=== PATIENT | male | born 2000 | race Caucasian/White ===

== ENCOUNTER 2022-11-18 16:21 | Emergency (ER) | payer OTHER ==
[2022-11-18 16:37] LABS: BILIRUBIN,URINE NEGATIVE (NEGATIVE); GLUCOSE, URINE (UA) NEGATIVE (NEGATIVE); KETONES,URINE (UA) NEGATIVE (NEGATIVE); LEUKOCYTE ESTERASE, URINE NEGATIVE (NEGATIVE); NITRITE,URINE NEGATIVE (NEGATIVE); OCCULT BLOOD,URINE NEGATIVE (NEGATIVE); PROTEIN,URINE NEGATIVE (NEGATIVE); UROBILINOGEN,URINE 0.2 (NORMAL) E.U./dL (NORMAL)
[2022-11-18 16:38] LABS: CLARITY,URINE CLEAR (CLEAR)
--- NOTE | 2022-11-18 16:46 | ED Physician Documentation ---
PD HPI ABD PAIN - Stated complaint Stated Complaint: ABD PX - Chief complaint Chief Complaint: Abd Pain - History obtained from History obtained from: Patient - Additional information Additional information: 22-year-old gentleman has developed right flank and abdominal pain for last 2 weeks. It initially was more in the groin, now more in the right lower lateral abdomen. It is associated with softer than normal stools. Denies fevers or nausea. Was seen at an urgent care in [place] and had urinalysis done without pertinent positive findings. No other work-up. Review of Systems Constitutional: denies: Fever, Chills GI: reports: Abdominal Pain. denies: Nausea, Vomiting, Constipation, Diarrhea, Hematemesis, Bloody / black stool PD PAST MEDICAL HISTORY - Present Medications Home Medications: Ambulatory Orders Medication Instructions Recorded Confirmed No Known Home Medications 11/18/22 11/18/22 - Allergies Allergies/Adverse Reactions: Allergies Allergy/AdvReac Type Severity Reaction Status Date / Time azithromycin Allergy Hives Verified 11/18/22 16:25 PD ED PE NORMAL - Vitals Vital signs reviewed: Yes - General General: Alert and oriented X 3, No acute distress - Neck Neck: Supple, no meningeal sign, No bony TTP - Cardiac Cardiac: RRR, No murmur - Respiratory Respiratory: No respiratory distress, Clear bilaterally - Abdomen Abdomen: Normal bowel sounds, Soft, Other (Minimal right lower quadrant tenderness well lateral to McBurney's point) - Back Back: No CVA TTP, No spinal TTP - Derm Derm: Normal color, Warm and dry - Extremities Extremities: No edema, No calf tenderness / cord - Neuro Neuro: Alert and oriented X 3, Normal speech Results - Vitals Vitals: Vital Signs - 24 hr 11/18/22 11/18/22 11/18/22 16:25 16:31 16:56 Temperature 36.5 C Heart Rate 90 84 Respiratory 16 16 17 Rate Blood Pressure 160/90 H O2 Saturation 98 100 11/18/22 11/18/22 17:43 18:02 Temperature 36.7 C Heart Rate 84 Respiratory 15 16 Rate Blood Pressure 139/82 H O2 Saturation 100 Oxygen O2 Source Room air - Labs Labs: Laboratory Tests 11/18/22 11/18/22 11/18/22 16:30 16:40 16:40 WBC 6.6 RBC 5.37 Hgb 15.6 Hct 47.6 MCV 88.6 MCH 29.1 MCHC 32.8 RDW 11.3 L Plt Count 307 MPV 8.6 Neut # (Auto) 3.5 Lymph # (Auto) 2.5 [place] # (Auto) 0.5 Eos # (Auto) 0.0 Baso # (Auto) 0.1 Absolute Nucleated RBC 0.00 Nucleated RBC % 0.0 Sodium 140 Potassium 3.8 Chloride 104 Carbon Dioxide 26 Anion Gap 10.0 BUN 9 Creatinine 0.8 Estimated GFR (MDRD) 121 Glucose 96 Calcium 10.3 Total Bilirubin 1.0 AST 22 ALT 20 Alkaline Phosphatase 54 Total Protein 7.9 Albumin 4.6 Globulin 3.3 Albumin/Globulin Ratio 1.4 Lipase 28 Urine Color YELLOW Urine Clarity CLEAR Urine pH 7.0 Ur Specific [place] 1.010 Urine Protein NEGATIVE Urine Glucose (UA) NEGATIVE Urine Ketones NEGATIVE Urine Occult Blood NEGATIVE Urine Nitrite NEGATIVE Urine Bilirubin NEGATIVE Urine Urobilinogen 0.2 (NORMAL) Ur Leukocyte Esterase NEGATIVE Ur Microscopic Review NOT INDICATED Urine Culture Comments NOT INDICATED - Rads (name of study) CT abdomen pelvis with IV contrast is normal. Radiology: Final report received, EMP read indepedently PD Medical Decision Making - ED course Complexity details: reviewed results (CBC normal, CMP normal, urinalysis normal.) ED course: 22-year-old gentleman with right lower quadrant pain of 2 weeks duration. He appears well with minimal if any tenderness on exam. Diagnostic work-up was negative. Close return precautions given. Departure - Departure Disposition: 01 Home, Self Care Clinical Impression: Abdominal pain Condition: Good Record reviewed to determine appropriate education?: Yes Instructions: ED Abdominal Pain Unkn Cause Male Comments: CT scan and labs were negative/normal. No evidence of appendicitis, kidney stone, diverticulitis. Follow-up with your doctor for further evaluation. Return if you worsen. Discharge Date/Time: 11/18/22 18:03
[2022-11-18 16:47] LABS: BASOPHILS # (AUTO) 0.1 10^3/uL (0.0-0.1); BASOPHILS % (AUTO) 0.9 %; EOSINOPHILS % (AUTO) 0.3 %; HCT - HEMATOCRIT 47.6 % (42.0-52.0); HGB - HEMOGLOBIN 15.6 g/dL (14.0-18.0); LYMPHOCYTES # (AUTO) 2.5 10^3/uL (1.5-3.5); LYMPHOCYTES % (AUTO) 37.7 %; MEAN CORPUSCULAR HEMOGLOBIN 29.1 pg (27.0-31.0); MEAN CORPUSCULAR HGB CONC 32.8 g/dL (32.0-36.0); MEAN CORPUSCULAR VOLUME 88.6 fL (80.0-94.0); MEAN PLATELET VOLUME 8.6 fL (7.4-11.4); MONOCYTES # (AUTO) 0.5 10^3/uL (0.0-1.0); MONOCYTES % (AUTO) 7.9 %; NEUTROPHILS # (AUTO) 3.5 10^3/uL (1.5-6.6); PLT - PLATELET COUNT 307 10^3/uL (130-450); RED BLOOD COUNT 5.37 10^6/uL (4.70-6.10); RED CELL DISTRIBUTION WIDTH 11.3 % (12.0-15.0); WHITE BLOOD COUNT 6.6 x10^3/uL (4.8-10.8)
[2022-11-18 17:03] LABS: ALBUMIN 4.6 g/dL (3.2-5.5); ALBUMIN/GLOBULIN RATIO 1.4 (1.0-2.2); CALCIUM 10.3 mg/dL (8.5-10.3); CREATININE 0.8 mg/dL (0.6-1.2); POTASSIUM 3.8 mmol/L (3.5-5.0); TOTAL PROTEIN 7.9 g/dL (6.7-8.2)
[2022-11-18] MEDS ORDERED: iohexoL-300 100 ML VIAL ONE (17:15)
[2022-11-18 17:45] VITALS: BP 139/82
--- NOTE | 2022-11-18 17:49 | CT Report ---
PROCEDURE: ABDOMEN/PELVIS W INDICATIONS: IV only, RLQ pain CONTRAST: 100mL Omni 300 TECHNIQUE: After the administration of intravenous contrast, 5 mm thick sections acquired from the diaphragms to the symphysis. 5 mm thick coronal and sagittal reformats were acquired. For radiation dose reducti on, the following was used: automated exposure control, adjustment of mA and/or kV according to debbie ent size. COMPARISON: None. FINDINGS: Visualized lung bases: No pleural effusion. Liver and biliary tree: No suspect focal hepatic lesion. No biliary ductal dilation. Gallbladder: No radiopaque cholelithiasis. Spleen: Unremarkable. Pancreas: Unremarkable. Adrenal glands: Unremarkable. Kidneys and ureters: No hydronephrosis. Gastrointestinal tract: No bowel obstruction. The appendix is visualized without evidence of acute ap pendicitis. Peritoneal cavity: No free air or free fluid. Bladder: Unremarkable. Pelvic organs: Unremarkable CT appearance. Vasculature: No abdominal aortic aneurysm. Musculoskeletal: No acute osseous abnormality identified. IMPRESSION: No evidence of acute appendicitis or other acute abnormality identified within the abdom en or pelvis. Reviewed by: Wlil Mendoza MD on 11/18/2022 5:48 PM PST Approved by: Will Mendoza MD on 11/18/2022 5:48 PM PST Station ID: [id number]
[2022-11-18] MEDS ORDERED: iohexoL-300 100 ML VIAL IVP ONE (19:28)
== END 2022-11-18 18:03 | disposition home or self-care (01) ==
LOC: ED 16:21
DX: R10.31 Right lower quadrant pain (principal)
CPT/HCPCS: 36415; 74177; 80053; 81003; 83690; 85025; 99283; 99284; Q9967; 81001; 87086

== ENCOUNTER 2023-02-24 17:41 | Emergency (ER) | payer OTHER ==
[2023-02-24 17:49] VITALS: BP 140/80
[2023-02-24] MEDS ORDERED: SODIUM CHLORIDE 0.9% 1,000 ML IV STA (17:52)
[2023-02-24] MEDS ORDERED: ONDANSETRON 4 MG/2 ML VIAL IVP STA (17:52)
--- NOTE | 2023-02-24 18:00 | ED Physician Documentation ---
History of Present Illness - Stated complaint Stated Complaint: ABNORMAL HR/DEHYDRATED SENT BY PCP - Chief complaint Chief Complaint: General - Additonal information Additional information: 22-year-old male was advised to come to the ER for IV hydration by [facility] for concerns of dehydration. Patient reports that about 5 days ago he began having vomiting and diarrhea. He continues to have 5-7 watery bowel movements a day. Nonbloody. He has not vomited for 3 days. He is taking water and Pedialyte. He has been feeling generally achy and feverish. He is denying any abdominal pain. No history of similar. He has tried Pepto-Bismol without relief of the diarrhea. He is on well water. Denies similar in neighbors or family at home. No recent travel Review of Systems Constitutional: reports: Myalgias, Fatigue. denies: Fever Ears: reports: Reviewed and negative Throat: reports: Reviewed and negative Cardiac: reports: Reviewed and negative Respiratory: reports: Reviewed and negative GI: reports: Vomiting, Diarrhea. denies: Abdominal Pain, Hematemesis, Bloody / black stool : reports: Reviewed and negative Skin: reports: Reviewed and negative Musculoskeletal: reports: Reviewed and negative PD PAST MEDICAL HISTORY - Past Medical History Cardiovascular: None Respiratory: None Neuro: None Endocrine/Autoimmune: None GI: None : None HEENT: None Psych: None Musculoskeletal: Other Derm: None - Past Surgical History Past Surgical History: Yes Ortho: ACL reconstruction - Present Medications Home Medications: Ambulatory Orders Medication Instructions Recorded Confirmed No Known Home Medications 11/18/22 11/18/22 - Allergies Allergies/Adverse Reactions: Allergies Allergy/AdvReac Type Severity Reaction Status Date / Time azithromycin Allergy Hives Verified 02/24/23 17:45 - Social History Does the pt smoke?: Yes Smoking Status: Current every day smoker Does the pt drink ETOH?: Yes Does the pt have substance abuse?: No - Immunizations Immunizations are current?: Yes - POLST Patient has POLST: No PD ED PE NORMAL - General General: Alert and oriented X 3, No acute distress, Well developed/nourished - HEENT HEENT: Atraumatic, Moist mucous membranes - Neck Neck: Supple, no meningeal sign, No adenopathy - Cardiac Cardiac: RRR, No murmur - Respiratory Respiratory: No respiratory distress, Clear bilaterally - Abdomen Abdomen: Soft, Non tender, Non distended. No: Normal bowel sounds (Hyperactive) Results - Vitals Vitals: Vital Signs - 24 hr 02/24/23 17:45 Temperature 36.5 C Heart Rate 94 Respiratory 16 Rate Blood Pressure 140/80 H O2 Saturation 100 Oxygen O2 Source Room air - Labs Labs: Laboratory Tests 02/24/23 02/24/23 17:57 17:57 WBC 7.4 RBC 5.32 Hgb 15.7 Hct 46.4 MCV 87.2 MCH 29.5 MCHC 33.8 RDW 11.2 L Plt Count 249 MPV 8.5 Neut # (Auto) 4.3 Lymph # (Auto) 1.9 [place] # (Auto) 1.0 Eos # (Auto) 0.0 Baso # (Auto) 0.1 Absolute Nucleated RBC 0.00 Nucleated RBC % 0.0 Sodium 137 Potassium 4.0 Chloride 102 Carbon Dioxide 27 Anion Gap 8.0 BUN 11 Creatinine 0.9 Estimated GFR (MDRD) 106 Glucose 91 Calcium 9.3 Total Bilirubin 1.0 AST 19 ALT 21 Alkaline Phosphatase 55 Total Protein 8.6 H Albumin 4.7 Globulin 3.9 Albumin/Globulin Ratio 1.2 Lipase 26 PD Medical Decision Making - ED course Complexity details: reviewed results, re-evaluated patient, d/w patient ED course: Well-appearing 20-year-old male presents emergency department for evaluation of 5 days of vomiting and diarrhea. [place] a resting tachycardia with a rate of about 110 that could be a sign of severe dehydration and was advised to come to the ER for hydration. On presentation to the emergency department the patient has a resting heart rate in the 90s. I did obtain CBC and electrolytes and per my interpretation no acute worrisome findings to suggest severe dehydration, electrolyte derangement or altered kidney or liver function. The patient was given a liter of IV fluids here in the emergency department. She was also given a single dose of Imodium. I discussed with the patient that diarrhea is typically self resolving. He does not have any risk factors for C. difficile. Patient will be discharged home in stable condition. Advised that if diarrhea not resolving after 5 to 10 days then we can consider stool testing. It was offered today in the ER but the patient did not think that he could provide a sample. Departure - Departure Disposition: 01 Home, Self Care Clinical Impression: Vomiting and diarrhea Condition: Stable Record reviewed to determine appropriate education?: Yes Instructions: ED Diarrhea Viral Comments: As discussed at the bedside most causes of diarrhea and otherwise healthy people are due to a virus and most of the time this will resolve on its own. We did obtain CBC and electrolytes today in the emergency department and as discussed at the bedside they are entirely normal. We did give you some IV fluids however as well as some Zofran medication for nausea. I would expect your diarrhea to be resolving over the next several days. You did receive a single dose of Imodium. IF you diarrhea does not improve over the next several days, please return to the ED. At that time we could reconsider stool testing. This was offered today in the emergency department but you did not feel that you could provide a sample. [place] If you find that your diarrhea is not improving, you have black or bloody stools then you should return to the ER.
[2023-02-24 18:03] LABS: BASOPHILS # (AUTO) 0.1 10^3/uL (0.0-0.1); BASOPHILS % (AUTO) 0.7 %; EOSINOPHILS % (AUTO) 0.3 %; HCT - HEMATOCRIT 46.4 % (42.0-52.0); HGB - HEMOGLOBIN 15.7 g/dL (14.0-18.0); LYMPHOCYTES # (AUTO) 1.9 10^3/uL (1.5-3.5); LYMPHOCYTES % (AUTO) 26.3 %; MEAN CORPUSCULAR HEMOGLOBIN 29.5 pg (27.0-31.0); MEAN CORPUSCULAR HGB CONC 33.8 g/dL (32.0-36.0); MEAN CORPUSCULAR VOLUME 87.2 fL (80.0-94.0); MEAN PLATELET VOLUME 8.5 fL (7.4-11.4); MONOCYTES % (AUTO) 13.7 %; NEUTROPHILS # (AUTO) 4.3 10^3/uL (1.5-6.6); NEUTROPHILS % (AUTO) 58.6 %; PLT - PLATELET COUNT 249 10^3/uL (130-450); RED BLOOD COUNT 5.32 10^6/uL (4.70-6.10); RED CELL DISTRIBUTION WIDTH 11.2 % (12.0-15.0); WHITE BLOOD COUNT 7.4 x10^3/uL (4.8-10.8)
[2023-02-24] MEDS ORDERED: LOPERAMIDE 2 MG CAPSULE PO STA (18:03)
[2023-02-24 18:16] LABS: ALBUMIN 4.7 g/dL (3.2-5.5); ALBUMIN/GLOBULIN RATIO 1.2 (1.0-2.2); CALCIUM 9.3 mg/dL (8.5-10.3); CREATININE 0.9 mg/dL (0.6-1.2); TOTAL PROTEIN 8.6 g/dL (6.7-8.2)
== END 2023-02-24 18:50 | disposition home or self-care (01) ==
LOC: ED 17:41
DX: R19.7 Diarrhea, unspecified (principal); R11.2 Nausea with vomiting, unspecified; F17.200 Nicotine dependence, unspecified, uncomplicated
CPT/HCPCS: 36415; 80053; 83690; 85025; 96361; 96374; 99283; 99284; A9270